=== PATIENT | male | born 1995 | race Caucasian/White ===

== ENCOUNTER 2019-11-26 08:19 | Emergency (ER) | payer OTHER, MEDICAID, SELFPAY ==
[2019-11-26 08:26] VITALS: BP 145/89; PULSE 83; RESP 16; TEMP 36.9; O2SAT 100
--- NOTE | 2019-11-26 08:26 | ED.DIZZY ---
HPI - Dizziness General Chief Complaint: Dizziness Stated Complaint: SOB/DIZZY/CONFUSION Source: patient and RN notes reviewed Limitations: no limitations History of Present Illness HPI Narrative: The patient, a smoker/rare drinker, presents with palpitations and lightheadedness. Patient states that since high school, [where he was athletic in track, basketball] he has been treated by psychiatry for anxiety disorder. His medication the past have included SSRI, ADD meds, and antihistamines [like Atarax], which he is not using now. He smokes using a menthol vapor-in order to try to stop regular smoking, and has not taken his meds. This morning --minutes after starting a new higher nicotine [1.5 to 5%], guava flavored vapor product-- he developed typical, bimonthly, lightheadedness and heart heart pounding. These were not as bad as prior episodes, where his call EMS and had stable cardiac monitoring. Symptoms resolved gradually without fever, sore throat, earache, loss of taste/smell, chest pain, wheezing/sneezing; no suicidal homicidal ideation, insomnia, substance use/ abuse, stressors [he has stable job/ girlfriend/ housing] Patient would like a refill of his prior medications and a work note Related Data Home Medications Medication Instructions Recorded Confirmed lisdexamfetamine [Vyvanse] mg 11/26/19 Allergies Allergy/AdvReac Type Severity Reaction Status Date / Time No Known Allergies Allergy Unverified 05/17/18 13:09 Review of Systems Review of Systems: Narrative: The patient has been informed that they may have pre-hypertension or Hypertension based on a BP reading in the department. I recommend that the patient call the primary care provider listed on their discharge instructions or a physician of their choice this week to arrange follow up for further evaluation of possible pre-hypertension or Hypertension General/Constitutional: No weight loss,fever Eyes: N0: Redness,discharge Ears/Nose/Throat: No: Epistaxis,ear discharge Respiratory: Denies: Hemoptysis Gastrointestinal: No Vomiting, Bleeding-rectal Skin: No Lumps, eruption Neurologic: No Focal Weakness,Sz Hematologic: Denies: Petechiae/Purpura Psychiatric: No: Suicida ideationl All Other Systems: Reviewed and Negative PMFSH Comments At time of signature, agree with nursing past medical, surgical, social and family history. There is no relevant family history pertinent to the presenting complaint Exam Narrative: Exam Narrative: General Appearance: Well appearing, No distress EYE: PERRLA, Conjunctiva clear Ears: External ear normal Nose: Normal nose Mouth/Throat: Normal appearing, Normal lips Neck: Supple Respiratory: Airway patent, No respiratory distress, CTA Cardiovascular: RRR Abdomen: Soft, Non-tender, Musculoskeletal: Full ROM Skin: Warm, Dry Neurological: A&O x3, CN II-X intact Psychiatric: Normal mood, Normal affect Course Vital Signs Vital signs: Vital Signs Temperature 98.4 F 11/26/19 08:26 Pulse Rate 83 11/26/19 08:26 Respiratory Rate 16 11/26/19 08:26 Blood Pressure 145/89 H 11/26/19 08:26 Pulse Oximetry 100 11/26/19 08:26 Temperature 98.4 F 11/26/19 08:26 Pulse Rate 83 11/26/19 08:26 Respiratory Rate 16 11/26/19 08:26 Blood Pressure 145/89 H 11/26/19 08:26 Pulse Oximetry 100 11/26/19 08:26 Discharge Plan Discharge Clinical Impression: Light-headedness, History of mood disorder, Medication refill Patient Disposition: Home, Self-Care Condition: Stable Instructions: Heart Palpitations (ED) Prescriptions: New hydroxyzine HCl 25 mg tablet 25 mg PO QID PRN (Reason: anxiety) Qty: 30 RF: 2 paroxetine HCl [Paxil] 20 mg tablet 20 mg PO QAM Qty: 20 RF: 3 No Action Vyvanse 70 mg capsule RF: 0 Follow-up/Referrals: UNKNOWN,DOCTOR [Primary Care Provider] - Stand Alone Forms: Work/School Release IP Discharge Date/Time: 11/04
== END 2019-11-26 09:13 | disposition home or self-care (01) ==
PROVIDERS: Emergency Provider Emergency Medicine
DX: R42 Dizziness and giddiness (principal); F39 Unspecified mood [affective] disorder; Z76.0 Encounter for issue of repeat prescription
CPT/HCPCS: 99213; G0463

== ENCOUNTER → 2019-12-01 15:50 | Outpatient (CLI) | payer OTHER, SELFPAY ==
--- NOTE | ~2019-12-01 | XR_ITS ---
EXAMINATION: XR chest 2V DATE: 12/01/2019 17:15 INDICATION: Dyspnea on exertion. Palpitations. TECHNIQUE: Frontal and lateral views of the chest were obtained. COMPARISON: Chest single view 10/11/2011 FINDINGS: The chest demonstrates clear lungs without pneumonia, pleural effusion, or pneumothorax. Th e heart size is normal. IMPRESSION: 1. No acute cardiopulmonary disease. Reviewed, dictated and finalized at location A.
== END ==
PROVIDERS: PCP Internal Medicine Geriatric Medicine; Visit Provider Internal Medicine Geriatric Medicine
DX: R06.09 Other forms of dyspnea (principal); R00.2 Palpitations
CPT/HCPCS: 71046

== ENCOUNTER → 2019-12-03 11:33 | Outpatient (CLI) | payer OTHER, MEDICAID, SELFPAY ==
--- NOTE | ~2019-12-03 | US_ITS ---
EXAMINATION: US thyroid EXAM DATE: 12/03/2019 11:51 INDICATION: Hyperthyroidism. TECHNIQUE: Multiple grayscale and Doppler images of the thyroid were obtained (by a technologist who performed the scan) and subsequently reviewed. Individual nodules and recommendations may be reporte d in accordance with TI-RADS system as designated by the 2017 ACR White Paper TI-RADS committee. The re is no prior study for comparison. FINDINGS: The right thyroid lobe measures 5.2 x 1.3 x 1.4 cm, the left measuring 4.9 x 1.3 x 1.6 cm. There is h omogeneous thyroid echogenicity. There is 3 mm right thyroid lobe nodule, not clinically significant finding. IMPRESSION: Mild thyromegaly. Reviewed, dictated and finalized at location A. IMPRESSION: Mild thyromegaly.
== END ==
DX: E05.90 Thyrotoxicosis, unspecified without thyrotoxic crisis or storm (principal); E04.9 Nontoxic goiter, unspecified
CPT/HCPCS: 76536

== ENCOUNTER 2019-12-08 10:09 | Outpatient (CLI) | payer OTHER, MEDICAID, SELFPAY ==
--- NOTE | 2019-12-08 | ECHO_ITS ---
Patient Info Name: Natalio Aldrich Page Age: 24 years : 1995 Gender: Male Ht: 74 in Wt: 260 lbs BSA: 2.52 m2 HR: 60 bpm BP: 148 / 92 mmHg Heart Rhythm: Sinus Rhythm Technical Quality: Good Exam Date: 12/08/2019 10:31 AM Exam Location: [facility] Patient Status: Outpatient Admit Date: 12/08/2019 Staff Ordering Physician: PHYSICIAN NOT ON STAFF, NONSTAFF Scoreboard Operator: Abran Clark RDCS Attending Provider: PHYSICIAN NOT ON STAFF, NONSTAFF Exam Type: CA echo doppler color flow Study Info Indications R06.00 - Dyspnea, unspecified R00.2 - Palpitations Complete two-dimensional, color flow and Doppler transthoracic echocardiogram is performed. Strain analysis performed. History/Risk Factors Palpitations and MARKS. Summary 1. Complete two-dimensional, color flow and Doppler transthoracic echocardiogram is performed. 2. Normal 2D and Doppler echocardiogram. Left Ventricle Left ventricular chamber dimension is normal. Left ventricular systolic function is normal, estimated at 60-65%. The left ventricular diastolic function is normal. Right Ventricle Right ventricular chamber dimension is normal. Left Atria Left atrial chamber dimension is normal. Right Atria Right atrial chamber dimension is normal. Aortic Valve The aortic valve is normal. Pulmonic Valve The pulmonic valve is normal. Mitral Valve The mitral valve has normal leaflets. Tricuspid Valve The tricuspid valve leaflets are normal. Pericardium/Pleural The pericardium appears normal. Aorta The aortic root size at the sinus of Valsalva is normal. Left Ventricular Outflow Tract Name Value Normal LVOT 2D LVOT Diameter 2.5 cm LVOT Doppler LVOT Peak Gradient 7 mmHg LVOT Mean Gradient 4 mmHg LVOT VTI 28 cm LVOT VTI/AV VTI Ratio 1.0 LVOT Stroke Volume 140 ml LVOT CO 10.0 l/min LVOT CI 4.0 l/min/m2 Mitral Valve Name Value Normal MV Doppler MV Decel Fallon 595 cm/s2 MV PHT 51 ms MV Area (PHT) 4.3 cm2 4.0-5.0 MV Diastolic Function MV E Peak Velocity 106 cm/s MV A Peak Velocity 56 cm/s MV E/A 1.9 MV Decel Time 177 ms MV Annular TDI MV E/e' (Septal) 8.6 <=8.0 MV E/e' (Lateral) 5.4 <=8.0 MV E/e' (Average)
== END 2019-12-08 10:10 | disposition home or self-care (01) ==
LOC: ANHCARD 10:10
DX: R06.09 Other forms of dyspnea (principal); R00.2 Palpitations
CPT/HCPCS: 93306

== ENCOUNTER 2020-11-27 20:21 | Emergency (ER) | payer OTHER, SELFPAY ==
[2020-11-27 20:28] VITALS: BP 141/86; PULSE 89; RESP 16; TEMP 36.8; O2SAT 100
--- NOTE | 2020-11-27 21:13 | PC.NURSE ---
seen leaving ED wr.
== END 2020-11-27 21:15 | disposition left against medical advice (07) ==
LOC: ANHED 21:32
DX: F41.9 Anxiety disorder, unspecified (principal)
CPT/HCPCS: 99199

== ENCOUNTER 2021-09-26 13:04 | Emergency (ER) | payer OTHER, SELFPAY ==
--- NOTE | 2021-09-26 13:11 | ED.ABDPAIN ---
HPI - Abdominal Pain General Chief Complaint: Abdominal Pain Stated Complaint: Abdominal Pain,Vomiting Time Seen by Provider: 09/26/21 13:23 Source: patient and RN notes reviewed Mode of arrival: ambulatory Limitations: no limitations History of Present Illness HPI narrative: 26-year-old male presents with concern for abdominal pain and bloating Reports bilateral upper abdominal pain and left lower abdominal pain. He reports symptoms started early this morning when he had an episode of vomiting. He denies any further vomiting. Reports he is nauseated. He reports he took Tums which helps with his stomach burning sensation. He reports body aches and fatigue. He reports urine frequency, but he does not have a lot of volume of urine. He denies dysuria, hematuria, suprapubic pain. He denies testicular pain swelling or redness. He denies upper respiratory symptoms. He denies known sick contacts MD elicited complaint: abdominal pain Related Data Home Medications Medication Instructions Recorded Confirmed lisdexamfetamine 70 mg capsule 50 mg DAILY 11/26/19 09/26/21 (Vyvanse) Allergies Allergy/AdvReac Type Severity Reaction Status Date / Time No Known Allergies Allergy Verified 09/26/21 13:18 Review of Systems Review of Systems: CONSTITUTIONAL: Reports malaise, fatigue. Denies chills, sweats, or fever. ENT: Denies rhinorrhea, congestion, sinus pain, otalgia or sore throat. CARDIOVASCULAR: Denies chest pain, palpitations, or edema. RESPIRATORY: Denies cough or dyspnea. GASTROINTESTINAL: Denies abdominal pain, diarrhea, bloody, or mucous stools. Reports abdominal pain, nausea, vomiting GENITOURINARY: Denies dysuria or hematuria. MUSCULOSKELETAL: Reports myalgia. NEUROLOGIC: Denies headache. All systems reviewed & are unremarkable except as noted in HPI and below PMFSH Comments At time of signature, agree with nursing past medical, surgical, social and family history. There is no relevant family history pertinent to the presenting complaint Exam Narrative: GENERAL: Well-appearing, well-nourished, and in no acute distress. HEAD: Normocephalic, atraumatic. EYES: PERRLA, conjunctivae clear, and EOMI. ENT: Nares clear, turbinates pink, no rhinorrhea or epistaxis. Mucous membranes moist. Oropharynx without edema, erythema, or lesions. Tonsils not enlarged and without exudate. NECK: Supple. No lymphadenopathy CHEST: Speaks in full sentences. No respiratory distress. HEART: Regular rate and rhythm. ABDOMEN: Soft, obese, nondistended, nontender. No guarding, rebound tenderness, or rigidity. No pulsatilla masses. Bowel sounds present in all four quadrants. No organomegaly. Negative Franco?s sign. No periumbilical tenderness. No Supra public tenderness or distension. Good femoral pulses bilaterally. No hernia noted. No scars or surface trauma. SKIN: Warm, dry, no rash. NEURO: Alert and oriented x3. PSYCH: Normal mood and affect Course Course Emergency Course: Patient is aware of diagnosis, understands and agrees to treatment plan. Anticipatory guidance given. Patient agrees to follow-up as directed and is aware of reasons to seek care at the emergency department. Portions of this record may have been created with voice recognition software Level of Care: Express Care Visit Vital Signs Vital signs: Reviewed. MDM - Abdominal Pain MDM Narrative Medical decision making narrative: No evidence of pancreatitis, AAA, mesenteric ischemia, small bowel obstruction, appendicitis, or pelvic etiology such as testicular torsion. Patient has no history of peptic ulcer, H. pylori, chronic aspirin NSAID or corticosteroid use, chronic alcohol use, no history of inflammatory bowel disease, no history of active abdominal infection or malignancy. Patient has no history of hernia or intra-abdominal surgeries, patient denies absence of flatus, constipation, melena, hematemesis. Patient denies post-prandial pain. No pain-out of proporti
[2021-09-26 13:15] VITALS: BP 132/90; PULSE 100; RESP 20; TEMP 37.1; O2SAT 98
== END 2021-09-26 13:58 | disposition home or self-care (01) ==
PROVIDERS: Emergency Provider Nurse Practitioner; PCP Internal Medicine Geriatric Medicine
DX: R11.2 Nausea with vomiting, unspecified (principal); Z20.822 Contact with and (suspected) exposure to COVID-19; F98.8 Other specified behavioral and emotional disorders with onset usually occurring in childhood and adolescence
CPT/HCPCS: 81003; 87426; 87804; 99213; C9803; G0463